=== PATIENT | female | born 1975 ===

== ENCOUNTER 2019-12-06 09:31 | Emergency (ER) | payer OTHER ==
[2019-12-06 11:13] LABS: Absolute Lymphocytes (CBC) 0.9 K/uL (0.7-4.9); Basophils % 0.6 % (0-1.3); Hematocrit 39.8 % (36.0-45.0); Lymphocytes % 21.1 % (15.3-44.8); MPV 7.5 fL (7.6-11.3)
[2019-12-06 11:18] LABS: Protime INR 1.06
[2019-12-06 11:43] LABS: ALT/SGPT 33 U/L (12-78); AST/SGOT 18 U/L (15-37); Albumin 3.9 g/dL (3.4-5.0); Alkaline Phosphatase 69 U/L (45-117); BUN Blood Urea Nitrogen 11 mg/dL (7-18); Bicarbonate 30 mmol/L (21-32); Bilirubin Direct 0.2 mg/dL (0-0.2); Bilirubin Total 0.6 mg/dL (0.2-1.0); Glucose Level 89 mg/dL (74-106); Magnesium 2.1 mg/dL (1.8-2.4); NT PRO-BNP 23 pg/mL (<125); Potassium 3.8 mmol/L (3.5-5.1); Protein, Total 7.8 g/dL (6.4-8.2); Sodium Level 140 mmol/L (136-145); Troponin (Emerg Dept Use Only) < 0.02 ng/mL (0.0-0.045)
--- NOTE | 2019-12-06 12:22 | RAD REPORT ---
EXAM DESCRIPTION: RAD - Chest Single View - 12/06/2019 11:08 am CLINICAL HISTORY: CHEST PAIN COMPARISON: None TECHNIQUE: AP portable chest image was obtained 12/06/2019 11:08 am . FINDINGS: Lungs are clear. Heart and vasculature are normal. No measurable pleural effusion and no p neumothorax. No acute bony abnormality seen. No acute aortic findings suspected. IMPRESSION: No acute cardiopulmonary process.
--- NOTE | 2019-12-06 13:45 | ER ---
Nurse's Notes [facility] Name: Catherine Garcia Age: 44 yrs Sex: Female : 1975 Arrival Date: 12/06/2019 Time: 09:34 Bed 19 Private MD: Diagnosis: Chest pain, unspecified Presentation: 12/05 09:45 Chief complaint: Intermittent left sided chest pain x 2 days, pain and numbness that hb radiates from left chest to left arm this morning. 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 VAN NEGATIVE. Coronavirus screen: Proceed with normal triage. Ebola Screen: No symptoms or risks identified at this time. Initial Sepsis Screen: Does the patient meet any 2 criteria? No. Patient's initial sepsis screen is negative. Does the patient have a suspected source of infection? No. Patient's initial sepsis screen is negative. Risk Assessment: Do you want to hurt yourself or someone else? Patient reports no desire to harm self or others. Onset of symptoms was December 05, 2019. 09:45 Method Of Arrival: Ambulatory hb 09:45 Acuity: SUSIE 3 hb ACCESS SPEC: 09:49 LMP N/A - Post-menopause hb Historical: - Allergies: 09:49 Codeine (Vomiting); hb - Home Meds: 09:49 None [Active]; hb - PMHx: 09:49 None; hb - PSHx: 09:49 None; hb - Immunization history:: Adult Immunizations up to date. - Social history:: Smoking status: Patient denies any tobacco usage or history of. Screenin:18 Abuse screen: Denies threats or abuse. Nutritional screening: No deficits noted. Tuberculosis screening: No symptoms or risk factors identified. Fall Risk None identified. Assessment: 10:15 General: Appears in no apparent distress. Behavior is cooperative, appropriate for age, ah anxious. Pain: Complains of pain in under left breast Pain does not radiate. Pain currently is 0 out of 10 on a pain scale. at worst was 2 out of 10 on a pain scale. Quality of pain is described as dull, Pain began 1 day ago. Is intermittent. Neuro: Level of Consciousness is awake, alert, obeys commands, Oriented to person, place, time, situation, Appropriate for age. Cardiovascular: Heart tones S1 S2 present Capillary refill < 3 seconds Patient's skin is warm and dry. Respiratory: Airway is patent Respiratory effort is even, unlabored, Respiratory pattern is regular, symmetrical, Denies cough, shortness of breath. GI: Bowel sounds present X 4 quads. Abd is soft and non tender Patient currently denies nausea, vomiting. Derm: Skin is intact, is healthy with good turgor, Skin is dry. 12:55 Reassessment: Troponin repeated at this time. No needs voiced at this time. Vital Signs: 09:45 BP 131 / 68; Pulse 88; Resp 16; Temp 97.9; Pulse Ox 100% on R/A; Weight 62.6 kg; Height hb 5 ft. 4 in. (162.56 cm); Pain 0/10; 09:45 Body Mass Index 23.69 (62.60 kg, 162.56 cm) hb ED Course: 09:34 Patient arrived in ED. ag5 09:49 Triage completed. 09:49 Arm band placed on. 10:07 Kena Herrera, RN is Primary Nurse. 10:09 Sacha Andersen MD is Attending Physician. kdr 10:18 Patient has correct armband on for positive identification. Placed in gown. Bed in low ah position. Call light in reach. monitoring analyst on. Pulse ox on. NIBP on. 11:09 XRAY Chest (1 view) In Process Unspecified. EDMS Administered Medications: No medications were administered Outcome: 13:44 Discharge ordered by . kdr 15:01 Patient left the ED. Signatures: Dispatcher [employer] EDMS Sacha Andersen MD MD [facility] Candi Mack RN RN Roni Cruz 5 Kena Herrera RN RN Corrections: (The following items were deleted from the chart) 09:51 09:45 Chief complaint: Intermittent left sided chest pain x 2 days, pain and numbness hb that radiates from left chest to left arm today. VAN NEGATIVE. hb
--- NOTE | 2019-12-06 13:45 | EDPHYS ---
Physician Documentation [facility] Name: Catherine Garcia Age: 44 yrs Sex: Female : 1975 Arrival Date: 12/06/2019 Time: 09:34 Bed 19 Private MD: ED Physician Sacha Andersen HPI: 12/05 11:17 This 44 yrs old Unknown Female presents to ER via Ambulatory with complaints of kdr Numbness Of Arm, Abdominal Pain. 11:18 The patient or guardian reports chest pain that is located primarily in the anterior kdr chest wall, Lower anterior chest wall. Onset: yesterday, Yesterday afternoon. The pain does not radiate. Associated signs and symptoms: Pertinent positives: The patient states that this morning that she awoke with the discomfort and also had tingling that began in her left upper arm and radiated down her arm. She had not had these s/s prior to yesterday. The chest pain is described as aching, sharp, pinching. Duration: The patient or guardian reports multiple episodes, that are intermittent, that wax and wane, with no pattern. Modifying factors: The symptoms are alleviated by nothing. the symptoms are aggravated by nothing. Severity of pain: At its worst the pain was very mild in the emergency department the pain Continues to be intermittent. The patient has not recently seen a physician. 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 - Social history:: Smoking status: Patient denies any tobacco usage or history of. ROS: 11:18 Constitutional: Negative for fever, chills, and weight loss, Eyes: Negative for injury, kdr pain, redness, and discharge, Neck: Negative for injury, pain, and swelling, Respiratory: Negative for shortness of breath, cough, wheezing, and pleuritic chest pain, Abdomen/GI: Negative for abdominal pain, nausea, vomiting, diarrhea, and constipation, Back: Negative for injury and pain, : Negative for injury, bleeding, discharge, and swelling, MS/Extremity: Negative for injury and deformity, Skin: Negative for injury, rash, and discoloration, Neuro: Negative for headache, weakness, numbness, tingling, and seizure activity. Psych: Negative for depression, anxiety, suicide ideation, homicidal ideation, and hallucinations, Allergy/Immunology: Negative for hives, rash, and allergies, Endocrine: Negative for neck swelling, polydipsia, polyuria, polyphagia, and marked weight changes, Hematologic/Lymphatic: Negative for swollen nodes, abnormal bleeding, and unusual bruising. 11:18 Cardiovascular: Positive for chest pain, of the left breast. Exam: 11:18 Constitutional: This is a well developed, well nourished patient who is awake, alert, kdr and in no acute distress. Head/Face: Normocephalic, atraumatic. Eyes: Pupils equal round and reactive to light, extra-ocular motions intact. Lids and lashes normal. Conjunctiva and sclera are non-icteric and not injected. Cornea within normal limits. Periorbital areas with no swelling, redness, or edema. Neck: Trachea midline, no thyromegaly or masses palpated, and no cervical lymphadenopathy. Supple, full range of motion without nuchal rigidity, or vertebral point tenderness. No Meningismus. Chest/axilla: Normal chest wall appearance and motion. Nontender with no deformity. No lesions are appreciated. Cardiovascular: Regular rate and rhythm with a normal S1 and S2. No gallops, murmurs, or rubs. Normal PMI, no JVD. No pulse deficits. Respiratory: Lungs have equal breath sounds bilaterally, clear to auscultation and percussion. No rales, rhonchi or wheezes noted. No increased work of breathing, no retractions or nasal flaring. Abdomen/GI: Soft, non-tender, with normal bowel sounds. No distension or tympany. No guarding or rebound. No evidence of tenderness throughout. Back: No spinal tenderness. No costovertebral tenderness. Full range of motion. Skin: Warm, dry with normal turgor. Normal color with no rashes, no lesions, and no evidence of cellulitis. MS/ Extremity: Pulses equal, no cyanosis. Neurovascular intact. Full, normal range of motion. Neuro: Awake and alert, GCS 15, oriented to person, place, time, and situation. Cranial nerves II-XII grossly intact. Motor strength 5/5 in all extremities. Sensory grossly intact. Cerebellar exam normal. Normal gait. Psych: Awake, alert, with orientation to person, place and time. Behavior, mood, and affect are within normal limits. 12:19 ECG was reviewed by the Attending Physician. [facility] Vital Signs: 09:45 BP 131 / 68; Pulse 88; Resp 16; Temp 97.9; Pulse Ox 100% on R/A; Weight 62.6 kg; Height hb 5 ft. 4 in. (162.56 cm); Pain 0/10; 09:45 Body Mass Index 23.69 (62.60 kg, 162.56 cm) hb MDM: 11:18 Data reviewed: vital signs, nurses notes, lab test result(s), EKG, radiologic studies. kdr Counseling: I had a detailed discussion with the patient and/or guardian regarding: the historical points, exam findings, and any diagnostic results supporting the discharge/admit diagnosis, lab results, radiology results. 13:44 Patient medically screened. [facility] 12/05 10:30 Order name: Basic Metabolic Panel; Complete Time: 12:15 [facility] 12/05 10:30 Order name: CBC with Diff; Complete Time: 12:15 [facility] 12/05 10:30 Order name: LFT's; Complete Time: 12:15 [facility] 12/05 10:30 Order name: Magnesium; Complete Time: 12:15 [facility] 12/05 10:30 Order name: NT PRO-BNP; Complete Time: 12:15 [facility] 12/05 10:30 Order name: PT-INR; Complete Time: 12:15 [facility] 12/05 10:30 Order name: Troponin (emerg Dept Use Only); Complete Time: 12:15 [facility] 12/05 10:30 Order name: XRAY Chest (1 view); Complete Time: 13:43 [facility] 12/05 10:30 Order name: EKG; Complete Time: 10:31 [facility] 12/05 10:30 Order name: Cardiac monitoring; Complete Time: 11:01 [facility] 12/05 10:30 Order name: EKG - Nurse/Tech; Complete Time: 12:16 [facility] 12/05 10:30 Order name: Labs collected and sent; Complete Time: 11: [facility] 12/05 12:16 Order name: Troponin (emerg Dept Use Only): Draw 2 hours after initial draw; Complete kdr Time: 13:12/05 10:30 Order name: O2 Per Protocol; Complete Time: 11: [facility] 12/05 10:30 Order name: O2 Sat Monitoring; Complete Time: : [facility] EC:19 Rate is 56 beats/min. Rhythm is regular, Sinus bradycardia with No ectopy. QRS Ruffin is [facility] Normal. WA interval is normal. QRS interval is normal. QT interval is normal. No Q waves. Clinical impression: Sinus bradycardia. Administered Medications: No medications were administered Disposition: 12/06/19 13:44 Discharged to Home. Impression: Chest pain, unspecified. - Condition is Stable. - Discharge Instructions: Nonspecific Chest Pain, Xuel-lf-Hvas. - Prescriptions for Ibuprofen 600 mg Oral Tablet - take 1 tablet by ORAL route every 6 hours As needed take with food; 12 tablet. - Medication Reconciliation Form, Thank You Letter form. - Follow up: Private Physician; When: 2 - 3 days; Reason: If symptoms return, Further diagnostic work-up, Recheck today's complaints, Continuance of care, Re-evaluation by your physician. - Problem is new. - Symptoms have improved. Signatures: Dispatcher [employer] EDIL Sacha Andersen MD MD [facility] Candi Mack RN RN Kena Herrera RN RN Corrections: (The following items were deleted from the chart) 11: 10:30 IV Saline Lock ordered. [facility] 15:01 13:44 12/06/2019 13:44 Discharged to Home. Impression: Chest pain, unspecified. Condition is Stable. Forms are Medication Reconciliation Form, Thank You Letter, Antibiotic Education, Prescription Opioid Use. Follow up: Private Physician; When: 2 - 3 days; Reason: If symptoms return, Further diagnostic work-up, Recheck today's complaints, Continuance of care, Re-evaluation by your physician. Problem is new. Symptoms have improved. [facility]
[2019-12-06 15:12] VITALS: BP 131/68; TEMP 97.9; O2SAT 100
--- NOTE | 2019-12-07 07:30 | EKG ---
Test Date: 2019-12-06 Test Time: 12:15:38 Miter Cutter: NICOLAS MEASUREMENT RESULTS: Intervals: Rate: 56 HI: 176 QRSD: 82 QT: 444 QTc: 428 [place]: P: 66 HI: 176 QRS: 83 T: 64 INTERPRETIVE STATEMENTS: Sinus bradycardia Otherwise normal ECG No previous ECG available for comparison Electronically Signed On 12-07-19 07:29:01 CDT by Al Dominguez
== END 2019-12-06 15:01 | disposition home or self-care (01) ==
LOC: ER 09:31
DX: R07.9 Chest pain, unspecified (principal); Z88.5 Allergy status to narcotic agent
CPT/HCPCS: 36415; 71045; 80048; 80076; 83735; 83880; 84484; 85025; 85610; 93005; 99284